=== PATIENT | male | born 1995 | race Caucasian/White ===

== ENCOUNTER 2017-01-30 18:46 | Emergency (ER) | payer BC ==
--- NOTE | 2017-01-30 19:24 | EDM.PDOC ---
ED HPI GENERAL MEDICAL PROBLEM - General Chief Complaint: Respiratory Problem Stated Complaint: PT HAS ALLERGIES Time Seen by Provider: 01/30/17 19:12 Source of Information: Reports: Patient History Limitations: Reports: No Limitations - History of Present Illness INITIAL COMMENTS - FREE TEXT/NARRATIVE: HISTORY AND PHYSICAL: History of present illness: [20-year-old male with no significant past medical history now complaining of allergy symptoms with seasonal allergies. Patient is been taking Benadryl on his concern is been taking it too often. He is not depressed nor has he overdosed intentionally however he states sometimes he takes an extra pill or dose. His girlfriend told him this is the wrong thing to do and that he should take it is directed so he came to the emergency department for evaluation. No headache or stiff neck. No chest pain or shortness of breath. Denies other complaints. Patient is currently asymptomatic except for mild allergy symptoms of sinus congestion] Review of systems: As per history of present illness and below otherwise all systems reviewed and negative. Past medical history: As per history of present illness and as reviewed below otherwise noncontributory. Surgical history: As per history of present illness and as reviewed below otherwise noncontributory. Social history: No reported history of drug or alcohol abuse. Family history: As per history of present illness and as reviewed below otherwise noncontributory. Physical exam: Well-appearing patient distress nonfocal exam HEENT: Atraumatic, normocephalic, pupils reactive, negative for conjunctival pallor or scleral icterus, mucous membranes moist, throat clear, neck supple, nontender, trachea midline. Lungs: Clear to auscultation, breath sounds equal bilaterally, chest nontender. Heart: S1S2, regular, negative for clicks, rubs, or JVD. Abdomen: Soft, nondistended, nontender. Negative for masses or hepatosplenomegaly. Negative for costovertebral tenderness. Pelvis: Stable nontender. Genitourinary: Deferred. Rectal: Deferred. Extremities: Atraumatic, negative for cords or calf pain. Neurovascular unremarkable. Neuro: Awake, alert, oriented. Cranial nerves grossly unremarkable. Cerebellum unremarkable. Motor and sensory unremarkable throughout. Exam nonfocal. Diagnostics: [] Therapeutics: [] Impression: [] Plan: [Signs and symptoms consistent with allergic rhinitis and well-appearing patient with unremarkable vital signs. Isn't concerned that he took extra doses of Benadryl however he is no evidence of anticholinergic syndrome. He stable in a symptomatically in the ED. His were to take [id number] allergy medicines as needed and only take medications as directed. No further workup or treatment indicated patient and significant other agree with outpatient follow- up. Strict return precautions given] Definitive disposition and diagnosis as appropriate pending reevaluation and review of above. headache Pain Score (Numeric/FACES): 1 - Related Data Allergies Allergy/AdvReac Type Severity Reaction Status Date / Time No Known Allergies Allergy Verified 01/30/17 19:06 Home Meds: Home Meds . [No Known Home Meds] 10/30/14 [History] Past Medical History - Past Health History Medical/Surgical History: Denies Medical/Surgical History Cardiovascular History: Reports: None Respiratory History: Reports: None Gastrointestinal History: Reports: None Genitourinary History: Reports: None Musculoskeletal History: Reports: None Neurological History: Reports: None Psychiatric History: Reports: None Endocrine/Metabolic History: Reports: None Oncologic (Cancer) History: Reports: None Dermatologic History: Reports: None - Past Surgical History Head Surgeries/Procedures: Reports: None Social & Family History - Family History Family Medical History: Noncontributory - Tobacco Use Smoking Status *Q: Current Every Day Smoker Years of Tobacco use: 4 Packs/Tins Daily: 0.1 - Caffeine Use Caffeine Use: Reports: Coffee, Energy Drinks, Soda - Recreational Drug Use Recreational Drug Use: No ED ROS GENERAL - Review of Systems Review Of Systems: See Below (For history of present illness) ED EXAM, GENERAL - Physical Exam Exam: See Below (Her history of present illness) Course - Vital Signs Last Recorded V/S: Last Vital Signs Temp 36.6 C 01/30/17 19:52 Pulse 84 01/30/17 19:52 Resp 18 01/30/17 19:52 BP 127/81 01/30/17 19:52 Pulse Ox 98 01/30/17 19:52 Departure - Departure Time of Disposition: 19:22 Disposition: Home, Self-Care 01 Condition: Good Clinical Impression: Allergic rhinitis - Discharge Information Instructions: Allergic Rhinitis Referrals: PCP,None [Primary Care Provider] - Forms: ED Department Discharge Additional Instructions: You are having symptoms of allergic rhinitis, or seasonal allergies. He can use [id number] medications for allergies such as Claritin, Zyrtec, or Fernanda. These medications are typically longer-lasting than Benadryl. If you use Benadryl do not exceed manufacturers recommended dose. Follow-up with PCP in one to 2 days and return immediately for new severe or worsening symptoms
[2017-01-30 19:54] VITALS: BP 127/81
== END 2017-01-30 19:54 | disposition home or self-care (01) ==
LOC: MW.ED 18:46
DX: J30.9 Allergic rhinitis, unspecified (principal); F17.210 Nicotine dependence, cigarettes, uncomplicated
CPT/HCPCS: 99282; 99283

== ENCOUNTER 2017-10-28 23:59 | Emergency (ER) | payer BC, OTHER ==
[2017-10-29] MEDS ORDERED: Ketorolac 60 MG/2 ML SDV IM ONE (00:19)
--- NOTE | 2017-10-29 00:25 | EDM.PDOC ---
ED HPI GENERAL MEDICAL PROBLEM - General Chief Complaint: Trauma Stated Complaint: HURT RIGHT SHOULDER Time Seen by Provider: 10/29/17 00:07 - History of Present Illness INITIAL COMMENTS - FREE TEXT/NARRATIVE: HISTORY AND PHYSICAL: History of present illness: The patient is a healthy 22-year-old male who presents as a trauma alert for right shoulder mid and lower back pain that started after an event at work evening just prior to arrival. 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 The car was moving on the track and continued to move with him holding on and hanging but he was not dragged. He says he was approximately 5 feet in the air and when it stopped moving he dropped down to his feet. He has no foot or lower extremity pain but complains of lower back pain and thoracic pain as well as right shoulder discomfort. The patient says he is ambidextrous and right with his left hand does everything else with his right arm. Patient did not hit his head pass out or black out and has no head or neck pain but c-collar was placed on arrival. Denies any chest wall pain abdominal pain or pelvic pain and has no neurosensory changes in his extremities. Review of systems: As per history of present illness and below otherwise all systems reviewed and negative. Past medical history: As per history of present illness and as reviewed below otherwise noncontributory. Surgical history: As per history of present illness and as reviewed below otherwise noncontributory. Social history: No reported history of drug or alcohol abuse. Family history: As per history of present illness and as reviewed below otherwise noncontributory. Physical exam: General: Well-developed well-nourished male who is nontoxic and c-collar was placed on arrival to the ED. Vital signs are noted by me HEENT: Atraumatic, normocephalic, pupils reactive, negative for conjunctival pallor or scleral icterus, mucous membranes moist, throat clear, neck supple, nontender, trachea midline.There are no midline step-offs tenderness defects of the cervical spine but there is some paraspinal tenderness on the right side. Lungs: Clear to auscultation, breath sounds equal bilaterally, chest nontender.No work or breathing stridor or wheezing or R no chest wall palpable deformities crepitus ecchymosis or tenderness appreciated Heart: S1S2, regular rate and rhythm no overt murmurs Abdomen: Soft, nondistended, nontender. Negative for masses or hepatosplenomegaly. Negative for costovertebral tenderness. Pelvis: Stable nontender. Genitourinary: Deferred. Rectal: Deferred. Extremities: Atraumatic, negative for cords or calf pain. Neurovascular unremarkable.Range of motion of all extremities with the exception of the right shoulder where the patient can range of motion at the elbow wrist and hand but refrains from moving at the shoulder due to discomfort. There are no palpable bony deformities at the clavicle humerus elbow forearm or wrist but there is some soft tissue swelling and tenderness but the compartments are soft. There is some mild scapular tenderness but no defects or crepitus. Neuro: Awake, alert, oriented. Cranial nerves II through XII unremarkable. Cerebellum unremarkable. Motor and sensory unremarkable throughout. Exam nonfocal. Back: There are no midline step-offs or defects of the thoracic or lumbar spine but there is tenderness at the mid and lower thoracic spine as well as the lower lumbar spine on palpation without defects or deformities. Diagnostics: X-rays of C-spine thoracic spine lumbar spine right shoulder Therapeutics: Toradol Norflex shoulder sling As this was called as a trauma alert we will continue our workup and inform and involve Dr. Rodriguez as needed going forward. Impression: Acute right shoulder sprain strain and musculoskeletal pain, thoracic and lumbar back pain stable Definitive disposition and diagnosis as appropriate pending reevaluation and review of above. right shoulder Pain Score (Numeric/FACES): 8 - Related Data Allergies Allergy/AdvReac Type Severity Reaction Status Date / Time No Known Allergies Allergy Verified 10/29/17 00:18 Home Meds: Home Meds . [No Known Home Meds] 10/30/14 [History] Past Medical History - Past Health History Medical/Surgical History: Denies Medical/Surgical History HEENT History: Reports: None Cardiovascular History: Reports: None Respiratory History: Reports: None Gastrointestinal History: Reports: None Genitourinary History: Reports: None Musculoskeletal History: Reports: None Neurological History: Reports: None Psychiatric History: Reports: None Endocrine/Metabolic History: Reports: None Hematologic History: Reports: None Oncologic (Cancer) History: Reports: None Dermatologic History: Reports: None - Infectious Disease History Infectious Disease History: Reports: None - Past Surgical History Head Surgeries/Procedures: Reports: None Social & Family History - Family History Family Medical History: Noncontributory - Tobacco Use Smoking Status *Q: Current Every Day Smoker Years of Tobacco use: 4 Packs/Tins Daily: 0.1 - Caffeine Use Caffeine Use: Reports: Coffee, Energy Drinks, Soda - Recreational Drug Use Recreational Drug Use: No Review of Systems - Review of Systems Review Of Systems: ROS reveals no pertinent complaints other than HPI. ED EXAM, GENERAL - Physical Exam Exam: See Below (See dictation) Course - Vital Signs Last Recorded V/S: Last Vital Signs Temp 36.8 C 10/29/17 00:05 Pulse 95 10/29/17 01:35 Resp 20 10/29/17 01:35 BP 128/79 10/29/17 01:35 Pulse Ox 95 10/29/17 01:35 - Orders/Labs/Meds Orders: Active Orders 24 hr Category Date Time Status Cervical Spine 2V or 3V [CR] Stat Exams 10/29/17 00:19 Ordered Lumbar Spine 2 or 3V [CR] Stat Exams 10/29/17 00:19 Ordered Shoulder Comp Rt [CR] Stat Exams 10/29/17 00:18 Ordered Thoracic Spine 3V [CR] Stat Exams 10/29/17 00:19 Ordered Meds: Medications Discontinued Medications Generic Name Dose Route Start Last Admin Trade Name Johnq PRN Reason Stop Dose Admin Ketorolac Tromethamine 60 mg 10/29/17 00:19 10/29/17 01:36 Toradol IM 10/29/17 00:20 60 mg ONETIME ONE Administration Orphenadrine Citrate 60 mg 10/29/17 00:20 10/29/17 01:41 Norflex IM 10/29/17 00:21 60 mg ONETIME ONE Administration Departure - Departure Time of Disposition: 02:30 Disposition: Home, Self-Care 01 Condition: Good Clinical Impression: Sprain of shoulder, right Qualifiers: Encounter type: initial encounter Shoulder sprain type: unspecified sprain Qualified Code(s): S43.401A - Unspecified sprain of right shoulder joint, initial encounter Shoulder pain Qualifiers: Chronicity: acute Laterality: right Qualified Code(s): M25.511 - Pain in right shoulder Back pain Qualifiers: Back pain location: back pain in unspecified location Chronicity: acute Back pain laterality: midline Qualified Code(s): M54.9 - Dorsalgia, unspecified - Discharge Information Referrals: PCP,None [Primary Care Provider] - Forms: ED Department Discharge Additional Instructions: The following information is given to patients seen in the emergency department who are being discharged to home. This information is to outline your options for follow-up care. We provide all patients seen in our emergency department with a follow-up referral. The need for follow-up, as well as the timing and circumstances, are variable depending upon the specifics of your emergency department visit. If you don't have a primary care physician on staff, we will provide you with a referral. We always advise you to contact your personal physician following an emergency department visit to inform them of the circumstance of the visit and for follow-up with them and/or the need for any referrals to a consulting specialist. The emergency department will also refer you to a specialist when appropriate. This referral assures that you have the opportunity for followup care with a specialist. All of these measure are taken in an effort to provide you with optimal care, which includes your followup. Under all circumstances we always encourage you to contact your private physician who remains a resource for coordinating your care. When calling for followup care, please make the office aware that this follow-up is from your recent emergency room visit. If for any reason you are refused follow-up, please contact the [facility] emergency department at and ask to speak to the emergency department charge nurse. [facility]--Orthopedic clinic Professional [address] [address] Ice to areas of shoulder for swelling and pain management and use sling but try to start slowly moving and ranging motion of the shoulder. Please use the lower arm and hand and keep it elevated survey did not get swelling. Use medications as needed and prescribed. Please call and schedule a follow-up appointment with our orthopedics clinic for reevaluation of this pain as you may need more testing and care. Return to ER as needed as discussed. Expect aches and pains in other areas of her body to slowly improve over the next few days. Use ice for the next 24 hours on your back areas and then switch to heat - My Orders Last 24 Hours: My Active Orders 10/29/17 00:18 Shoulder Comp Rt [CR] Stat 10/29/17 00:19 Cervical Spine 2V or 3V [CR] Stat Lumbar Spine 2 or 3V [CR] Stat Thoracic Spine 3V [CR] Stat - Assessment/Plan Last 24 Hours: My Active Orders 10/29/17 00:18 Shoulder Comp Rt [CR] Stat 10/29/17 00:19 Cervical Spine 2V or 3V [CR] Stat Lumbar Spine 2 or 3V [CR] Stat Thoracic Spine 3V [CR] Stat
[2017-10-29 02:53] VITALS: BP 125/78
--- NOTE | 2017-10-29 10:39 | CR ---
EXAM DATE: 10/28/17 PATIENT'S AGE: 22 Patient: WILIAM BABIN Facility: [place], [place] Site . Site : 1995 Study: XRay Spine Thoracic [id number]/2018 1:39:36 AM Ordering Physician: Kunal Zuniga Final Report: INDICATION: Trauma TECHNIQUE: Thoracic spine 3 view. COMPARISON: None FINDINGS: Note that the upper thoracic spine is poorly seen on the lateral view. Bones: Alignment is normal. No fractures or significant bone lesions. Joints: Disc spaces and facets are unremarkable. Soft tissues: Unremarkable. IMPRESSION: The upper thoracic spine is poorly seen on the lateral view. No fracture or subluxation in the visualized portions of the spine. Consider CT for further evaluation if clinically indicated. Dictated by Maria Esther Hicks MD @ Oct 29 2017 1:42AM (Electronic Signature) Report Signed by Proxy. AMARA
--- NOTE | 2017-10-29 10:39 | CR ---
EXAM DATE: 10/28/17 PATIENT'S AGE: 22 Patient: WILIAM BABIN Facility: [place], [place] Site . Site : 1995 Study: XRay Spine Lumbar [id number]/13/2018 1:39:15 AM Ordering Physician: Kunal Zuniga Final Report: INDICATION: Trauma TECHNIQUE: Lumbar spine 3 view. COMPARISON: None FINDINGS: Bones: Alignment is normal. No fractures or significant bone lesions. Joints: Disc spaces and facets are unremarkable. Soft tissues: Unremarkable. IMPRESSION: Unremarkable lumbar spine. Dictated by Maria Esther Hicks MD @ Oct 29 2017 1:41AM (Electronic Signature) Report Signed by Proxy. AMARA
--- NOTE | 2017-10-29 10:40 | CR ---
EXAM DATE: 10/28/17 PATIENT'S AGE: 22 Patient: WILIMA BABIN Facility: [place], [place] Site . Site : 1995 Study: XRay Spine Cervical [id number] 1:41:12 AM Ordering Physician: Kunal Zuniga Final Report: INDICATION: Trauma TECHNIQUE: Cervical spine 5 view. COMPARISON: None FINDINGS: Lateral films include the skullbase to the C7 inferior endplate. Bones: Alignment is normal. No fractures or significant bone lesions. Joints: Disc spaces and facets are unremarkable. Soft tissues: Unremarkable. IMPRESSION: No fracture subluxed seen in the visualized portions of the cervical spine. CT is recommended for radiologic clearance of the cervical thoracic junction. Dictated by Maria Esther Hicks MD @ Oct 29 2017 1:44AM ----- ADDENDUM ----- Addendum: A swimmer`s view of the cervical spine was performed. This includes the C3 through T3 vertebrae. No fracture or subluxation identified. These findings were discussed with Dr. Syed at 2:49 a.m. on October 29, 2017. Dictated by Maria Esther Hicks MD @ Oct 29 2017 2:46AM (Electronic Signature) Report Signed by Proxy. AMARA
--- NOTE | 2017-10-29 10:41 | CR ---
EXAM DATE: 10/28/17 PATIENT'S AGE: 22 Patient: WILIAM BABIN Facility: [place], [place] Site . Site : 1995 Study: XRay Shoulder Right [id number]/13/2018 1:41:33 AM Ordering Physician: Kunal Zuniga Final Report: Indication: Trauma Technique: Two views right shoulder Comparison: None Findings: Bones: Alignment is normal. No fractures or bone lesions. Joint spaces: Unremarkable. Soft tissues: Unremarkable. Visualized portions of the right lung are clear. Impression: Negative. Dictated by Maria Esther Hicks MD @ Oct 29 2017 1:47AM (Electronic Signature) Report Signed by Proxy. AMARA
== END 2017-10-29 03:01 | disposition home or self-care (01) ==
LOC: MW.ED 23:59
DX: S43.401A Unspecified sprain of right shoulder joint, initial encounter (principal); M54.5 Low back pain; F17.210 Nicotine dependence, cigarettes, uncomplicated; V81.89XA Occupant of railway train or railway vehicle injured due to other specified railway accident, initial encounter
CPT/HCPCS: 72040; 72072; 72100; 73030; 96372; 99283; A4566; J1885; J2360; 99284

== ENCOUNTER 2018-12-26 19:16 | Emergency (ER) | payer OTHER ==
[2018-12-26 19:32] VITALS: BP 136/86
[2018-12-26] MEDS ORDERED: Diphtheria,Pertussis(Acell),Tetanus Vaccine 0.5 ML Syringe IM ONE (19:40)
[2018-12-26] MEDS ORDERED: Bacitracin Oint 1 GM U/D Packet TOP ONE (19:41)
--- NOTE | 2018-12-26 19:51 | EDM.PDOC ---
ED HPI GENERAL MEDICAL PROBLEM - General Chief Complaint: Laceration Stated Complaint: LEFT WRIST INJURY Time Seen by Provider: 12/26/18 19:30 Source of Information: Reports: Patient History Limitations: Reports: No Limitations - History of Present Illness INITIAL COMMENTS - FREE TEXT/NARRATIVE: HISTORY AND PHYSICAL: History of present illness: Patient is a 23-year-old male who presents to the emergency room with complaints of a laceration to the left wrist. He states he was moving some metal sheeting when a piece had slipped resulting in a laceration. He has full range of motion and able to extend and flex the hand without any difficulty. No current bleeding. Unsure of his last tetanus immunization. Review of systems: As per history of present illness and below otherwise all systems reviewed and negative. Past medical history: As per history of present illness and as reviewed below otherwise noncontributory. Surgical history: As per history of present illness and as reviewed below otherwise noncontributory. Social history: See social history for further information Family history: As per history of present illness and as reviewed below otherwise noncontributory. Physical exam: General: Well-developed and well-nourished 23-year-old male. Alert and oriented. Nontoxic appearing and in no acute distress. HEENT: Atraumatic, normocephalic, pupils equal and reactive bilaterally, negative for conjunctival pallor or scleral icterus, mucous membranes moist, trachea midline. No drooling or trismus noted. No meningeal signs. No hot potato voice noted. Lungs: Clear to auscultation, breath sounds equal bilaterally, chest nontender. Heart: S1S2, regular rate and rhythm without overt murmur Abdomen: Soft, nondistended, nontender. Skin: 1.2 cm laceration to the left ulnar aspect of the wrist. No tendon involvement. Otherwise skin is intact, warm, dry. No lesions or rashes noted. Extremities: See skin for details, moves all extremities per self without difficulty or deficits, negative for cords or calf pain. Neurovascular unremarkable. Neuro: Awake, alert, oriented. Cranial nerves II through XII unremarkable. Cerebellum unremarkable. Motor and sensory unremarkable throughout. Exam nonfocal. Notes: 1% lidocaine was used to anesthetize the area. Area was thoroughly cleansed with chlorhexidine. Appears to have no tendon involvement. Usual and customary procedures were followed for suture placement. 4-0, #3 interrupted sutures were placed. Patient tolerated well. Bacitracin nonstick dressing applied. Supportive care measures were reviewed and discussed. Voices understanding and is agreeable to plan of care. Denies any further questions or concerns at this time. Diagnostics: None Therapeutics: Wound care, bacitracin nonstick dressing, Tdap Prescription: None Impression: Laceration Plan: 1. Keep the area clean and dry. Continue to monitor for signs of infection. Sutures to be removed in 7-10 days. 2. Tylenol and/or ibuprofen as needed for pain management. 3. Please follow-up with your primary care provider in the next 1-2 days. Return to the ED as needed and as discussed. Definitive disposition and diagnosis as appropriate pending reevaluation and review of above. Left Hand Pain Score (Numeric/FACES): 3 - Related Data Allergies Allergy/AdvReac Type Severity Reaction Status Date / Time No Known Allergies Allergy Verified 12/26/18 19:30 Home Meds: Home Meds . [No Known Home Meds] 10/30/14 [History] Past Medical History - Past Health History Medical/Surgical History: Denies Medical/Surgical History HEENT History: Reports: None Cardiovascular History: Reports: None Respiratory History: Reports: None Gastrointestinal History: Reports: None Genitourinary History: Reports: None Musculoskeletal History: Reports: None Neurological History: Reports: None Psychiatric History: Reports: None Endocrine/Metabolic History: Reports: None Hematologic History: Reports: None Oncologic (Cancer) History: Reports: None Dermatologic History: Reports: None - Infectious Disease History Infectious Disease History: Reports: Chicken Pox - Past Surgical History Head Surgeries/Procedures: Reports: None Social & Family History - Family History Family Medical History: Noncontributory - Tobacco Use Smoking Status *Q: Former Smoker Used Tobacco, but Quit: Yes Month/Year Tobacco Last Used: 2018 - Caffeine Use Caffeine Use: Reports: Coffee, Energy Drinks - Recreational Drug Use Recreational Drug Use: No ED ROS GENERAL - Review of Systems Review Of Systems: ROS reveals no pertinent complaints other than HPI. ED EXAM, SKIN/RASH Exam: See Below (See dictation) ED SKIN PROCEDURES - Laceration/Wound Repair Left wrist Lac/Wound length In cm: 1.2 Appearance: Subcutaneous, Linear Distal NVT: Neuro & Vascular Intact Anesthetic Type: Local Local Anesthesia - Lidocaine (Xylocaine): 1% Plain Local Anesthetic Volume: 2cc Skin Prep: Chlorhexidine (Hibiciens), Saline Saline Irrigation (cc's): 25 Exploration/Debridement/Repair: Wound Explored, No Foreign Material Found Closed with: Sutures Suture Size: 4-0 # of Sutures: 3 Suture Type: Nylon Drain Placement: No Sterile Dressing Applied: Provider Tetanus Status Addressed: Yes Complications: No Course - Vital Signs Last Recorded V/S: Last Vital Signs Temp 97.4 F 12/26/18 19:30 Pulse 94 12/26/18 19:30 Resp 20 12/26/18 19:30 BP 136/86 12/26/18 19:30 Pulse Ox 96 12/26/18 19:30 - Orders/Labs/Meds Orders: Active Orders 24 hr Category Date Time Status Vaccines to be Administered [RC] PER UNIT ROUTINE Care 12/26/18 19:41 Ordered Meds: Medications Discontinued Medications Generic Name Dose Route Start Last Admin Trade Name Freq PRN Reason Stop Dose Admin Bacitracin 1 dose 12/26/18 19:41 12/26/18 19:48 Bacitracin Oint 1 Gm TOP 12/26/18 19:42 1 dose ONETIME ONE Administration Diphtheria/Tetanus/Acell Pertussis 0.5 ml 12/26/18 19:40 12/26/18 19:48 Adacel IM 12/26/18 19:41 0.5 ml .ONCE ONE Administration Lidocaine HCl 5 ml 12/26/18 19:41 12/26/18 19:48 Xylocaine-Mpf 1% INJECT 12/26/18 19:42 5 ml ONETIME ONE Administration Departure - Departure Time of Disposition: 19:51 Disposition: Home, Self-Care 01 Clinical Impression: Laceration - Discharge Information Instructions: Laceration Care, Adult, [id number] Referrals: PCP,None [Primary Care Provider] - Forms: ED Department Discharge Additional Instructions: The following information is given to patients seen in the emergency department who are being discharged to home. This information is to outline your options for follow-up care. We provide all patients seen in our emergency department with a follow-up referral. The need for follow-up, as well as the timing and circumstances, are variable depending upon the specifics of your emergency department visit. If you don't have a primary care physician on staff, we will provide you with a referral. We always advise you to contact your personal physician following an emergency department visit to inform them of the circumstance of the visit and for follow-up with them and/or the need for any referrals to a consulting specialist. The emergency department will also refer you to a specialist when appropriate. This referral assures that you have the opportunity for follow-up care with a specialist. All of these measure are taken in an effort to provide you with optimal care, which includes your follow-up. Under all circumstances we always encourage you to contact your private physician who remains a resource for coordinating your care. When calling for follow-up care, please make the office aware that this follow-up is from your recent emergency room visit. If for any reason you are refused follow-up, please contact the [facility] Emergency Department at and asked to speak to the emergency department charge nurse. [facility] [address] [place] [id number] [facility] [address] [place] [id number] 1. Keep the area clean and dry. Continue to monitor for signs of infection. Sutures to be removed in 7-10 days. 2. Tylenol and/or ibuprofen as needed for pain management. 3. Please follow-up with your primary care provider in the next 1-2 days. Return to the ED as needed and as discussed. - My Orders Last 24 Hours: My Active Orders 12/26/18 19:41 Vaccines to be Administered [RC] PER UNIT ROUTINE - Assessment/Plan Last 24 Hours: My Active Orders 12/26/18 19:41 Vaccines to be Administered [RC] PER UNIT ROUTINE
== END 2018-12-26 20:00 | disposition home or self-care (01) ==
LOC: MW.ED 19:16
DX: S61.512A Laceration without foreign body of left wrist, initial encounter (principal); Z23 Encounter for immunization; Z87.891 Personal history of nicotine dependence; W26.8XXA Contact with other sharp object(s), not elsewhere classified, initial encounter
CPT/HCPCS: 12001; 90471; 90715; 99282; J2001

== ENCOUNTER 2019-03-19 06:01 | Emergency (ER) | payer OTHER ==
[2019-03-19] MEDS ORDERED: Ketorolac 60 MG/2 ML SDV ONE (06:23)
[2019-03-19] MEDS ORDERED: Ketorolac 60 MG/2 ML SDV IM ONE (06:23)
--- NOTE | 2019-03-19 06:30 | EDM.PDOC ---
<Ehsan Carias - Last Filed: 03/19/19 06:34> ED HPI GENERAL MEDICAL PROBLEM - General Chief Complaint: Back Pain or Injury Stated Complaint: LOWER BACK PAIN Time Seen by Provider: 03/19/19 06:09 - History of Present Illness INITIAL COMMENTS - FREE TEXT/NARRATIVE: HISTORY AND PHYSICAL: History of present illness: Ehsan is a 23 year old male who presents to the emergency department for the evaluation of lower back pain. Two days ago the patient was moving a washer and felt a sharp pain in his left lower back. The back pain has been persistent over the past two days. The pain in worsened with extension. He is currently treating the pain with aspirin and has found no relief. In the emergency room he reports his back pain is a 8/10 sharp with movement. He denies any radiation of pain, numbness or tingling to his lower extremities. Review of systems: As per history of present illness and below otherwise all systems reviewed and negative. Past medical history: As per history of present illness and as reviewed below otherwise noncontributory. Surgical history: As per history of present illness and as reviewed below otherwise noncontributory. Social history: No reported history of drug or alcohol abuse. Family history: As per history of present illness and as reviewed below otherwise noncontributory. Physical exam: Constitutional: Well developed well nourished, non toxic appearing HEENT: Atraumatic, normocephalic, pupils reactive, negative for conjunctival pallor or scleral icterus, mucous membranes moist, throat clear, neck supple, nontender, trachea midline. Lungs: Clear to auscultation, breath sounds equal bilaterally, chest nontender. Heart: S1S2, regular, negative for clicks, rubs, or JVD. Abdomen: Soft, nondistended, nontender. Negative for masses or hepatosplenomegaly. Negative for costovertebral tenderness Back: No obvious deformities, no adalberto step offs to with palpation to the vertebra. Gait is intact. Pain with extension to the left perivertebral area of the lumbar spine. Pelvis: Stable nontender. Genitourinary: Deferred. Rectal: Deferred. Extremities: Atraumatic, negative for cords or calf pain. Neurovascular unremarkable. Neuro: Awake, alert, oriented. Cranial nerves II through XII unremarkable. Cerebellum unremarkable. Motor and sensory unremarkable throughout. Exam nonfocal. Diagnostics: None Therapeutics: Toradol Impression: Back Pain Plan: The patient will be released with a prescription for Diclofenac. The patient is to avoid further heavy lifting. He is to follow up with his primary care as needed. Activity as discussed. Return as discussed Definitive disposition and diagnosis as appropriate pending reevaluation and review of above. back area Pain Score (Numeric/FACES): 8 - Related Data Allergies Allergy/AdvReac Type Severity Reaction Status Date / Time No Known Allergies Allergy Verified 03/19/19 06:12 Home Meds: Home Meds . [No Known Home Meds] 10/30/14 [History] Past Medical History - Past Health History Medical/Surgical History: Denies Medical/Surgical History HEENT History: Reports: None Cardiovascular History: Reports: None Respiratory History: Reports: None Gastrointestinal History: Reports: None Genitourinary History: Reports: None Musculoskeletal History: Reports: None Neurological History: Reports: None Psychiatric History: Reports: None Endocrine/Metabolic History: Reports: None Hematologic History: Reports: None Oncologic (Cancer) History: Reports: None Dermatologic History: Reports: None - Infectious Disease History Infectious Disease History: Reports: None - Past Surgical History Head Surgeries/Procedures: Reports: None Social & Family History - Family History Family Medical History: Noncontributory - Tobacco Use Smoking Status *Q: Current Some Day Smoker Years of Tobacco use: 5 Packs/Tins Daily: 0.5 - Caffeine Use Caffeine Use: Reports: Coffee, Energy Drinks, Soda - Recreational Drug Use Recreational Drug Use: No Course - Vital Signs Last Recorded V/S: Last Vital Signs Temp 36.1 C 03/19/19 06:12 Pulse 81 03/19/19 06:12 Resp 18 03/19/19 06:12 BP 131/81 03/19/19 06:12 Pulse Ox 98 03/19/19 06:12 - Orders/Labs/Meds Meds: Medications Discontinued Medications Generic Name Dose Route Start Last Admin Trade Name Freeman PRN Reason Stop Dose Admin Ketorolac Tromethamine 60 mg 03/19/19 06:23 03/19/19 06:27 Toradol IM 03/19/19 06:24 60 mg ONETIME ONE Administration Ketorolac Tromethamine Confirm 03/19/19 06:23 03/19/19 06:36 Toradol Administered 03/19/19 06:24 Not Given Dose 60 mg .ROUTE .STK-MED ONE Departure - Departure Time of Disposition: 06:34 Disposition: Home, Self-Care 01 Condition: Good Clinical Impression: Lumbar pain - Discharge Information Instructions: Low Back Strain Referrals: PCP,None [Primary Care Provider] - Forms: ED Department Discharge Additional Instructions: The following information is given to patients seen in the emergency department who are being discharged to home. This information is to outline your options for follow-up care. We provide all patients seen in our emergency department with a follow-up referral. The need for follow-up, as well as the timing and circumstances, are variable depending upon the specifics of your emergency department visit. If you don't have a primary care physician on staff, we will provide you with a referral. We always advise you to contact your personal physician following an emergency department visit to inform them of the circumstance of the visit and for follow-up with them and/or the need for any referrals to a consulting specialist. The emergency department will also refer you to a specialist when appropriate. This referral assures that you have the opportunity for follow-up care with a specialist. All of these measure are taken in an effort to provide you with optimal care, which includes your follow-up. Under all circumstances we always encourage you to contact your private physician who remains a resource for coordinating your care. When calling for follow-up care, please make the office aware that this follow-up is from your recent emergency room visit. If for any reason you are refused follow-up, please contact the [facility] Emergency Department at and asked to speak to the emergency department charge nurse. Diclofenac as prescribed, activity as discussed, follow with primary care as discussed, return to the emergency department as needed as discussed. <Chuck Ackerman - Last Filed: 03/19/19 06:37> ED ROS GENERAL - Review of Systems Review Of Systems: ROS reveals no pertinent complaints other than HPI. ED EXAM,LOWER BACK PAIN/INJURY - Physical Exam Exam: See Below (See dictation) Course - Vital Signs Text/Narrative:: History and physical as documented disposition discharge instructions as documented
[2019-03-19 06:47] VITALS: BP 119/74; PULSE 82
== END 2019-03-19 06:45 | disposition home or self-care (01) ==
LOC: MW.ED 06:01
DX: M54.5 Low back pain (principal); F17.210 Nicotine dependence, cigarettes, uncomplicated
CPT/HCPCS: 96372; 99283; J1885

== ENCOUNTER 2019-07-17 09:06 | Emergency (ER) | payer BC, OTHER ==
[2019-07-17] MEDS ORDERED: cefTRIAXone 1 GM Vial IM ONE (09:31)
[2019-07-17 09:32] VITALS: BP 139/76; PULSE 92
--- NOTE | 2019-07-17 09:34 | EDM.PDOC ---
ED HPI GENERAL MEDICAL PROBLEM - General Chief Complaint: ENT Problem Stated Complaint: SINUS INFECTION Time Seen by Provider: 07/17/19 09:32 Source of Information: Reports: Patient - History of Present Illness INITIAL COMMENTS - FREE TEXT/NARRATIVE: HISTORY AND PHYSICAL: History of present illness: [A shunt presents with sinus pain and pressure increasing over the last month no fever nausea vomiting chills sweats ] Review of systems: As per history of present illness and below otherwise all systems reviewed and negative. Past medical history: As per history of present illness and as reviewed below otherwise noncontributory. Surgical history: As per history of present illness and as reviewed below otherwise noncontributory. Social history: No reported history of drug or alcohol abuse. Family history: As per history of present illness and as reviewed below otherwise noncontributory. Physical exam: HEENT: Atraumatic, normocephalic, pupils reactive, negative for conjunctival pallor or scleral icterus, mucous membranes moist, throat clear, neck supple, nontender, trachea midline. pansinusitis noted Lungs: Clear to auscultation, breath sounds equal bilaterally, chest nontender. Heart: S1S2, regular, negative for clicks, rubs, or JVD. Abdomen: Soft, nondistended, nontender. Negative for masses or hepatosplenomegaly. Negative for costovertebral tenderness. Pelvis: Stable nontender. Genitourinary: Deferred. Rectal: Deferred. Extremities: Atraumatic, negative for cords or calf pain. Neurovascular unremarkable. Neuro: Awake, alert, oriented. Cranial nerves II through XII unremarkable. Cerebellum unremarkable. Motor and sensory unremarkable throughout. Exam nonfocal. Diagnostics: [Clinical] Therapeutics: [Gram Rocephin IM Levaquin 500 by modaily #10 no refill [id number] symptomatic therapy discussed impression: [ acute sinusitis ] Definitive disposition and diagnosis as appropriate pending reevaluation and review of above. eyes Pain Score (Numeric/FACES): 8 - Related Data Allergies Allergy/AdvReac Type Severity Reaction Status Date / Time No Known Allergies Allergy Verified 07/17/19 09:23 Home Meds: Home Meds . [No Known Home Meds] 10/30/14 [History] Past Medical History - Past Health History Medical/Surgical History: Denies Medical/Surgical History HEENT History: Reports: None Cardiovascular History: Reports: None Respiratory History: Reports: None Gastrointestinal History: Reports: None Genitourinary History: Reports: None Musculoskeletal History: Reports: None Neurological History: Reports: None Psychiatric History: Reports: None Endocrine/Metabolic History: Reports: None Hematologic History: Reports: None Oncologic (Cancer) History: Reports: None Dermatologic History: Reports: None - Infectious Disease History Infectious Disease History: Reports: None - Past Surgical History Head Surgeries/Procedures: Reports: None Social & Family History - Family History Family Medical History: Noncontributory - Caffeine Use Caffeine Use: Reports: Coffee, Energy Drinks, Soda ED ROS GENERAL - Review of Systems Review Of Systems: See Below ED EXAM, GENERAL - Physical Exam Exam: See Below Course - Vital Signs Last Recorded V/S: Last Vital Signs Temp 96.4 F 07/17/19 09:20 Pulse 92 07/17/19 09:20 Resp 18 07/17/19 09:20 BP 139/76 07/17/19 09:20 Pulse Ox 96 07/17/19 09:20 - Orders/Labs/Meds Orders: Active Orders 24 hr Category Date Time Status cefTRIAXone [Rocephin] Med 07/17/19 09:31 Once 1 gm IM ONETIME ONE Departure - Departure Time of Disposition: 09:33 Disposition: Home, Self-Care 01 Condition: Good Clinical Impression: Sinusitis - Discharge Information Referrals: PCP,None [Primary Care Provider] - Additional Instructions: The following information is given to patients seen in the emergency department who are being discharged to home. This information is to outline your options for follow-up care. We provide all patients seen in our emergency department with a follow-up referral. The need for follow-up, as well as the timing and circumstances, are variable depending upon the specifics of your emergency department visit. If you don't have a primary care physician on staff, we will provide you with a referral. We always advise you to contact your personal physician following an emergency department visit to inform them of the circumstance of the visit and for follow-up with them and/or the need for any referrals to a consulting specialist. The emergency department will also refer you to a specialist when appropriate. This referral assures that you have the opportunity for follow-up care with a specialist. All of these measure are taken in an effort to provide you with optimal care, which includes your follow-up. Under all circumstances we always encourage you to contact your private physician who remains a resource for coordinating your care. When calling for follow-up care, please make the office aware that this follow-up is from your recent emergency room visit. If for any reason you are refused follow-up, please contact the [facility] emergency department at and asked to speak to the emergency department charge nurse. - My Orders Last 24 Hours: My Active Orders 07/17/19 09:31 cefTRIAXone [Rocephin] 1 gm IM ONETIME ONE - Assessment/Plan Last 24 Hours: My Active Orders 07/17/19 09:31 cefTRIAXone [Rocephin] 1 gm IM ONETIME ONE
[2019-07-17] MEDS ORDERED: Lidocaine 1% 2 ML ONE (09:41)
== END 2019-07-17 10:05 | disposition home or self-care (01) ==
LOC: MW.ED 09:06
DX: J01.90 Acute sinusitis, unspecified (principal)
CPT/HCPCS: 96372; 99283; J0696; J2001

== ENCOUNTER 2019-09-14 19:41 | Emergency (ER) | payer BC ==
[2019-09-14 19:54] VITALS: BP 146/92; PULSE 89
--- NOTE | 2019-09-14 20:16 | CR ---
Right hand: 3 views of the right hand were obtained. Comparison: No prior hand exam. Joint spaces are maintained. No fracture, dislocation or other bony abnormality is seen. Impression: 1. No abnormality is appreciated on right hand exam. Diagnostic code #1 Study was dictated in [place] Standard Time
--- NOTE | 2019-09-14 20:41 | EDM.PDOC ---
ED HPI GENERAL MEDICAL PROBLEM - General Chief Complaint: Upper Extremity Injury/Pain Stated Complaint: INJURY TO KNUCKLES RIGHT HAND Time Seen by Provider: 09/14/19 20:34 Source of Information: Reports: Patient History Limitations: Reports: No Limitations - History of Present Illness INITIAL COMMENTS - FREE TEXT/NARRATIVE: HISTORY AND PHYSICAL: History of present illness: Patient is a 24-year-old male who presents to the ED today with concern of right hand injury that occurred 2 weeks ago. Patient states 2 to 3 weeks ago he decided to punch a wall and since then has had pain in his right hand. Patient states the pain is improved much over the weeks but he had some stiffness in it today so decided to come in to be evaluated. Patient denies any new trauma or injury to the hand or any other symptoms or concerns. Patient denies fever, chills, chest pain, shortness of breath, or cough. Denies headache, neck stiff ness, change in vision, syncope, or near syncope. Denies nausea, vomiting, abdominal pain, diarrhea, constipation, or dysuria. Has not noted any blood in urine or stool. Patient has been eating and drinking appropriately. Review of systems: As per history of present illness and below otherwise all systems reviewed and negative. Past medical history: As per history of present illness and as reviewed below otherwise noncontributory. Surgical history: As per history of present illness and as reviewed below otherwise noncontributory. Social history: See social history for further information Family history: As per history of present illness and as reviewed below otherwise noncontributory. Physical exam: General: Patient is alert, oriented, and in no acute distress. Patient sitting comfortably on exam table. HEENT: Atraumatic, normocephalic, pupils equal and reactive bilaterally, negative for conjunctival pallor or scleral icterus, mucous membranes moist, TMs normal bilaterally, throat clear, neck supple, nontender, trachea midline. No drooling or trismus noted. No meningeal signs. No hot potato voice noted. Lungs: Clear to auscultation, breath sounds equal bilaterally, chest nontender. Heart: S1S2, regular rate and rhythm without overt murmur Abdomen: Soft, nondistended, nontender. Negative for masses or hepatosplenomegaly. Negative for costovertebral tenderness. Pelvis: Stable nontender. Genitourinary: Deferred. Rectal: Deferred. Skin: Intact, warm, dry. No lesions or rashes noted. Extremities: Atraumatic, negative for cords or calf pain. Neurovascular unremarkable. No obvious deformity of the complete right hand. Patient has full range of motion of the right hand without pain or difficulty. Radial pulses grossly intact of the right upper extremity with capillary refill less than 2 seconds. Neuro: Awake, alert, oriented. Cranial nerves II through XII unremarkable. Cerebellum unremarkable. Motor and sensory unremarkable throughout. Exam nonfocal. Notes: Discussed importance for follow-up with a primary care provider. Voices understanding and is agreeable to plan of care. Denies any further questions or concerns at this time. Diagnostics: Hand XR Therapeutics: Hand splint Prescription: None Impression: Right hand pain Plan: 1. Rest, ice, elevate the affected extremity. You can apply ice 15 minutes on, 15 minutes off. 2. Tylenol and/or Ibuprofen as directed for pain management or discomfort. 3. Follow up with the primary care provider as discussed. Return to the ED as needed and as discussed. Definitive disposition and diagnosis as appropriate pending reevaluation and review of above. R hand Pain Score (Numeric/FACES): 2 - Related Data Allergies Allergy/AdvReac Type Severity Reaction Status Date / Time No Known Allergies Allergy Verified 09/14/19 19:54 Home Meds: Home Meds . [No Known Home Meds] 10/30/14 [History] Past Medical History - Past Health History Medical/Surgical History: Denies Medical/Surgical History HEENT History: Reports: None Cardiovascular History: Reports: None Respiratory History: Reports: None Gastrointestinal History: Reports: None Genitourinary History: Reports: None Musculoskeletal History: Reports: None Neurological History: Reports: None Psychiatric History: Reports: None Endocrine/Metabolic History: Reports: None Hematologic History: Reports: None Oncologic (Cancer) History: Reports: None Dermatologic History: Reports: None - Infectious Disease History Infectious Disease History: Reports: None - Past Surgical History Head Surgeries/Procedures: Reports: None Social & Family History - Family History Family Medical History: Noncontributory - Tobacco Use Smoking Status *Q: Former Smoker Used Tobacco, but Quit: Yes Month/Year Tobacco Last Used: 03/06 - Caffeine Use Caffeine Use: Reports: Coffee, Energy Drinks, Soda, Tea - Recreational Drug Use Recreational Drug Use: No Review of Systems - Review of Systems Review Of Systems: Comprehensive ROS is negative, except as noted in HPI. ED EXAM, GENERAL - Physical Exam Exam: See Below (see dictation) Course - Vital Signs Last Recorded V/S: Last Vital Signs Temp 97.2 F 09/14/19 19:53 Pulse 89 09/14/19 19:53 Resp 16 09/14/19 19:53 BP 146/92 H 09/14/19 19:53 Pulse Ox 98 09/14/19 19:53 Departure - Departure Time of Disposition: 20:38 Disposition: Home, Self-Care 01 Clinical Impression: Hand pain, right - Discharge Information Referrals: PCP,None [Primary Care Provider] - Additional Instructions: The following information is given to patients seen in the emergency department who are being discharged to home. This information is to outline your options for follow-up care. We provide all patients seen in our emergency department with a follow-up referral. The need for follow-up, as well as the timing and circumstances, are variable depending upon the specifics of your emergency department visit. If you don't have a primary care physician on staff, we will provide you with a referral. We always advise you to contact your personal physician following an emergency department visit to inform them of the circumstance of the visit and for follow-up with them and/or the need for any referrals to a consulting specialist. The emergency department will also refer you to a specialist when appropriate. This referral assures that you have the opportunity for follow-up care with a specialist. All of these measure are taken in an effort to provide you with optimal care, which includes your follow-up. Under all circumstances we always encourage you to contact your private physician who remains a resource for coordinating your care. When calling for follow-up care, please make the office aware that this follow-up is from your recent emergency room visit. If for any reason you are refused follow-up, please contact the [facility] Emergency Department at and asked to speak to the emergency department charge nurse. [facility] [address] [place] [address] [id number] [address] [address] 1. Rest, ice, elevate the affected extremity. You can apply ice 15 minutes on, 15 minutes off. 2. Tylenol and/or Ibuprofen as directed for pain management or discomfort. 3. Follow up with the primary care provider as discussed. Return to the ED as needed and as discussed. Sepsis Event Note - Evaluation Sepsis Screening Result: No Definite Risk - Focused Exam Vital Signs: Vital Signs Temp Pulse Resp BP Pulse Ox 09/14/19 19:53 97.2 F 89 16 146/92 H 98 Date Exam was Performed: 09/14/19 Time Exam was Performed: 20:38
== END 2019-09-14 21:03 | disposition home or self-care (01) ==
LOC: MW.ED 19:41
DX: M79.641 Pain in right hand (principal); Z87.891 Personal history of nicotine dependence
CPT/HCPCS: 73130-26-RT; 73130-RT; 99282; 99283-25

== ENCOUNTER 2020-02-29 12:48 | Emergency (ER) | payer BC ==
--- NOTE | 2020-02-29 12:52 | EDM.PDOC ---
ED HPI GENERAL MEDICAL PROBLEM - General Chief Complaint: Bite:Animal, Insect Stated Complaint: DOG BITE Time Seen by Provider: 02/29/20 12:51 Source of Information: Reports: Patient History Limitations: Reports: No Limitations - History of Present Illness INITIAL COMMENTS - FREE TEXT/NARRATIVE: HISTORY AND PHYSICAL: History of present illness: Patient is a 24-year-old male who presents to the emergency room with complaints of a dog bite that occurred last evening. He states that the animal is a farm animal, shots are up-to-date. The dog had bit the left index finger and he has a scratch along the right cheekbone. He was able to clean the areas thoroughly after it occurred. He was concerned as the scratch along his right cheekbone is tender to palpation. He denies any pain with ocular movement, change in vision, fever or any other systemic complaints. Tdap up-to-date, 2019. Review of systems: As per history of present illness and below otherwise all systems reviewed and negative. Past medical history: As per history of present illness and as reviewed below otherwise noncontributory. Surgical history: As per history of present illness and as reviewed below otherwise noncontributory. Social history: See social history for further information Family history: As per history of present illness and as reviewed below otherwise noncontributory. Physical exam: General: Well developed and well nourished 24 year old male. A&O x 3. Nontoxic appearing and in no acute distress. VSS. HEENT: Atraumatic, normocephalic, pupils equal and reactive bilaterally, negative for conjunctival pallor or scleral icterus, mucous membranes moist, TMs normal bilaterally, throat clear, neck supple, nontender, trachea midline. No drooling or trismus noted. No meningeal signs. No hot potato voice noted. Lungs: Clear to auscultation, breath sounds equal bilaterally, chest nontender. Heart: S1S2, regular rate and rhythm without overt murmur Abdomen: Soft, nondistended, nontender. Skin: Superficial scratch across the right cheekbone. Puncture wound to the left index finger. Otherwise skin is intact, warm, dry. No lesions or rashes noted. Extremities: Atraumatic, moves all extremities per self without difficulty or deficits, negative for cords or calf pain. Neurovascular unremarkable. Neuro: Awake, alert, oriented. Cranial nerves II through XII unremarkable. Cerebellum unremarkable. Motor and sensory unremarkable throughout. Exam nonfocal. Notes: The animal bite sites appear clean, bacitracin applied to the right cheekbone site. Law enforcement has been contacted to report an animal bite. Patient denies any concern of rabies, stating the animal is up-to-date on its immunizations. We discussed signs and symptoms that would prompt him to return to the emergency room. Follow-up, medication and supportive care measures were reviewed and discussed. Voices understanding and is agreeable to plan of care. Denies any further questions or concerns at this time. Diagnostics: None Therapeutics: Wound care, bacitracin Prescription: Augmentin Impression: Dog bite Plan: 1. Take the antibiotic as directed. Keep the area clean and dry. Wash gently with mild soap and water at least 2 x daily. Continue to monitor for signs of infection. If you should develop any fever, excessive drainage or pain with eye movement please return to the emergency room as we discussed. 2. Tylenol and/or ibuprofen as needed for pain management. 3. Please follow-up with your primary care provider in the next 1-2 days. Return to the ED as needed and as discussed. Definitive disposition and diagnosis as appropriate pending reevaluation and review of above. - Related Data Allergies Allergy/AdvReac Type Severity Reaction Status Date / Time No Known Allergies Allergy Verified 02/29/20 13:00 Home Meds: Home Meds . [No Known Home Meds] 02/29/20 [History] Past Medical History - Past Health History Medical/Surgical History: Denies Medical/Surgical History HEENT History: Reports: None Cardiovascular History: Reports: None Respiratory History: Reports: None Gastrointestinal History: Reports: None Genitourinary History: Reports: None Musculoskeletal History: Reports: None Neurological History: Reports: None Psychiatric History: Reports: None Endocrine/Metabolic History: Reports: None Hematologic History: Reports: None Oncologic (Cancer) History: Reports: None Dermatologic History: Reports: None - Infectious Disease History Infectious Disease History: Reports: None - Past Surgical History Head Surgeries/Procedures: Reports: None Social & Family History - Family History Family Medical History: Noncontributory - Caffeine Use Caffeine Use: Reports: Coffee, Energy Drinks, Soda, Tea ED ROS GENERAL - Review of Systems Review Of Systems: Comprehensive ROS is negative, except as noted in HPI. ED EXAM, ANIMAL BITE - Physical Exam Exam: See Below (See dictation) Course - Orders/Labs/Meds Meds: Medications Discontinued Medications Generic Name Dose Route Start Last Admin Trade Name Freeman PRN Reason Stop Dose Admin Bacitracin 1 dose 02/29/20 12:58 Bacitracin Oint 1 Gm TOP 02/29/20 12:59 ONETIME ONE Departure - Departure Time of Disposition: 13:00 Disposition: Home, Self-Care 01 Clinical Impression: Dog bite Qualifiers: Encounter type: initial encounter Qualified Code(s): W54.0XXA - Bitten by dog, initial encounter - Discharge Information Instructions: Animal Bite, Adult, [id number] Referrals: PCP,None [Primary Care Provider] - Forms: ED Department Discharge Additional Instructions: The following information is given to patients seen in the emergency department who are being discharged to home. This information is to outline your options for follow-up care. We provide all patients seen in our emergency department with a follow-up referral. The need for follow-up, as well as the timing and circumstances, are variable depending upon the specifics of your emergency department visit. If you don't have a primary care physician on staff, we will provide you with a referral. We always advise you to contact your personal physician following an emergency department visit to inform them of the circumstance of the visit and for follow-up with them and/or the need for any referrals to a consulting specialist. The emergency department will also refer you to a specialist when appropriate. This referral assures that you have the opportunity for follow-up care with a specialist. All of these measure are taken in an effort to provide you with optimal care, which includes your follow-up. Under all circumstances we always encourage you to contact your private physician who remains a resource for coordinating your care. When calling for follow-up care, please make the office aware that this follow-up is from your recent emergency room visit. If for any reason you are refused follow-up, please contact the [facility] Emergency Department at and asked to speak to the emergency department charge nurse. [facility] [address] [place] [id number] [facility] [address] [place] [address] Thank you for choosing the [facility] emergency department in [place] for your medical needs today. It was a pleasure caring for you. You were seen in the emergency department for dog bite requiring antibiotics. 1. Take the antibiotic as directed. Keep the area clean and dry. Wash gently with mild soap and water at least 2 x daily. Continue to monitor for signs of infection. If you should develop any fever, excessive drainage or pain with eye movement please return to the emergency room as we discussed. 2. Tylenol and/or ibuprofen as needed for pain management. 3. Please follow-up with your primary care provider in the next 1-2 days. Return to the ED as needed and as discussed.
[2020-02-29] MEDS ORDERED: Bacitracin Oint 1 GM U/D Packet TOP ONE (12:58)
[2020-02-29 13:09] VITALS: BP 141/87; PULSE 100
== END 2020-02-29 13:45 | disposition home or self-care (01) ==
LOC: MW.ED 12:48
DX: S61.251A Open bite of left index finger without damage to nail, initial encounter (principal); W54.0XXA Bitten by dog, initial encounter
CPT/HCPCS: 99282; 99283

== ENCOUNTER 2022-01-17 18:42 | Emergency (ER) | payer BC ==
[2022-01-17 19:46] VITALS: BP 135/84; PULSE 85
== END 2022-01-17 19:46 | disposition home or self-care (01) ==
LOC: MW.ED 18:42
DX: R19.7 Diarrhea, unspecified (principal); B34.9 Viral infection, unspecified
CPT/HCPCS: 99283

== ENCOUNTER 2022-02-22 06:40 | Emergency (ER) | payer BC ==
[2022-02-22] MEDS ORDERED: Alum Hydro/Mag Hydro/Simeth XS 15 ML, Lidocaine 2% 5 ML PO ONE ×2 (07:09)
[2022-02-22] MEDS ORDERED: Famotidine 20 MG Tab PO ONE (07:09)
[2022-02-22 07:32] LABS: CARBON DIOXIDE,CO2 26.3 mmol/L (21.0-32.0); POTASSIUM,K 3.4 mmol/L (3.5-5.1)
[2022-02-22 08:28] VITALS: BP 121/79; PULSE 89
== END 2022-02-22 08:28 | disposition home or self-care (01) ==
LOC: MW.ED 06:40
DX: R07.89 Other chest pain (principal); R20.2 Paresthesia of skin; Z20.822 Contact with and (suspected) exposure to COVID-19
CPT/HCPCS: 36415; 71045; 80053; 83735; 84484; 85025; 87635; 93005; 99285; A9270; U0002

== ENCOUNTER 2022-02-27 09:42 | Emergency (ER) | payer BC ==
[2022-02-27 11:00] LABS: CARBON DIOXIDE,CO2 24.3 mmol/L (21.0-32.0); POTASSIUM,K 3.5 mmol/L (3.5-5.1)
[2022-02-27] MEDS ORDERED: Pantoprazole 40 MG in Sodium Chloride 0.9% 10 ML IVPUSH ONE (11:04)
[2022-02-27 12:05] VITALS: BP 127/80; PULSE 95
== END 2022-02-27 12:05 | disposition home or self-care (01) ==
LOC: MW.ED 09:42
DX: R07.89 Other chest pain (principal); K92.0 Hematemesis; Z72.0 Tobacco use
CPT/HCPCS: 36415; 71045; 80048; 84484; 85025; 85379; 93005; 96374; 99285; C9113; J3490; 93010; 99284

== ENCOUNTER 2022-03-23 13:49 | Emergency (ER) | payer BC ==
[2022-03-23] MEDS ORDERED: Iopamidol 755 Mg/ML 100 ML Bottle IVPUSH ONE (15:54)
[2022-03-23 16:34] LABS: CARBON DIOXIDE,CO2 29.8 mmol/L (21.0-32.0); POTASSIUM,K 4.4 mmol/L (3.5-5.1)
[2022-03-23 17:44] VITALS: BP 140/78; PULSE 71
== END 2022-03-23 17:22 | disposition home or self-care (01) ==
LOC: MW.ED 13:49
DX: R55 Syncope and collapse (principal); R07.9 Chest pain, unspecified
CPT/HCPCS: 36415; 71275; 71275-26; 80053; 84484; 85025; 93005; 93010; 99284; 99285

== ENCOUNTER 2022-04-03 22:38 | Emergency (ER) | payer BC ==
[2022-04-03 23:37] LABS: BLOOD UREA NITROGEN,BUN 11 mg/dL (7.0-18.0); CARBON DIOXIDE,CO2 27.8 mmol/L (21.0-32.0); CHLORIDE,CL 100 mmol/L (98-107); GLUCOSE RANDOM 92 mg/dL (74-106); POTASSIUM,K 4.2 mmol/L (3.5-5.1); SODIUM,NA 137 mmol/L (136-148)
[2022-04-03] MEDS ORDERED: Alum Hydro/Mag Hydro/Simeth XS 15 ML, Lidocaine 2% 5 ML PO ONE ×2 (23:37)
[2022-04-03] MEDS ORDERED: Famotidine 20 MG Tab PO ONE (23:37)
[2022-04-03 23:44] LABS: ESTIMATED GFR 119 mL/min (>60)
[2022-04-04 00:51] VITALS: BP 119/75; PULSE 88
== END 2022-04-04 00:49 | disposition home or self-care (01) ==
LOC: MW.ED 22:38
DX: R07.9 Chest pain, unspecified (principal); Z20.822 Contact with and (suspected) exposure to COVID-19
CPT/HCPCS: 36415; 71045; 80053; 83735; 84443; 84484; 85025; 87635; 93005; 99285; A9270; 99284; U0002

== ENCOUNTER 2022-04-14 17:17 | Emergency (ER) | payer BC | END 2022-04-14 19:09 | disposition left against medical advice (07) | LOC: MW.ED 17:17 | DX: Z53.21 Procedure and treatment not carried out due to patient leaving prior to being seen by health care provider (principal) ==

== ENCOUNTER 2022-04-16 03:31 | Emergency (ER) | payer BC ==
[2022-04-16] MEDS ORDERED: Sodium Chloride 0.9% 10 ML Syringe FLUSH PRN (04:35)
[2022-04-16] MEDS ORDERED: Sodium Chloride 0.9% 1,000 ML IV ONE (04:35)
[2022-04-16] MEDS ORDERED: Sodium Chloride 0.9% 2.5 ML Syringe FLUSH PRN (04:35)
[2022-04-16 05:06] LABS: CARBON DIOXIDE,CO2 30.4 mmol/L (21.0-32.0); POTASSIUM,K 3.3 mmol/L (3.5-5.1)
[2022-04-16 06:22] VITALS: BP 104/65; PULSE 75
== END 2022-04-16 06:10 | disposition home or self-care (01) ==
LOC: MW.ED 03:31
DX: R55 Syncope and collapse (principal)
CPT/HCPCS: 36415; 70450; 71045; 80053; 83735; 84484; 85025; 93005; 96360; 99284; J3490; J7030; 93010